=== PATIENT | male | born 1985 | race Caucasian/White ===

== ENCOUNTER 2020-04-07 08:03 | Outpatient (CLI) | payer SELFPAY ==
[2020-04-12 09:55] LABS: SARS-CoV-2 RNA Undetected (Undetected); SARS-CoV-2 Specimen Source Nasopharynx
== END 2020-04-07 08:23 ==
PROVIDERS: Visit Provider Family Medicine
DX: Z11.59 Encounter for screening for other viral diseases (principal)
CPT/HCPCS: U0003

== ENCOUNTER 2020-05-29 13:46 | Outpatient (CLI) | payer SELFPAY ==
[2020-06-01 17:16] LABS: Patient Race White; SARS-CoV-2 RNA Undetected (Undetected); SARS-CoV-2 Specimen Source Nasopharynx
== END 2020-05-29 14:06 ==
PROVIDERS: Visit Provider Family Medicine
DX: Z11.59 Encounter for screening for other viral diseases (principal)
CPT/HCPCS: U0003

== ENCOUNTER 2020-07-28 07:33 | Outpatient (CLI) | payer SELFPAY ==
[2020-08-01 16:09] LABS: Patient Race White; SARS-CoV-2 RNA Undetected (Undetected); SARS-CoV-2 Specimen Source Nasal
== END 2020-07-28 07:53 ==
PROVIDERS: Visit Provider Family Medicine
DX: Z11.59 Encounter for screening for other viral diseases (principal)
CPT/HCPCS: U0003

== ENCOUNTER 2021-01-07 19:09 | Outpatient (CLI) | payer SELFPAY ==
[2021-01-11 10:48] LABS: Varicella IgG Antibody Positive (See Note)
== END 2021-01-07 19:10 | disposition home or self-care (01) ==
LOC: LBO 19:10
PROVIDERS: PCP Family Medicine; Visit Provider Family Medicine
DX: Z00.00 Encounter for general adult medical examination without abnormal findings (principal); Z11.59 Encounter for screening for other viral diseases
CPT/HCPCS: 36415; 86787

== ENCOUNTER 2021-06-15 12:18 | Inpatient (IN) | payer SELFPAY ==
[2021-06-15 12:30] VITALS: BP 144/98; PULSE 84; RESP 16; TEMP 36.4; O2SAT 97
--- NOTE | 2021-06-15 13:30 | DI.CT_ITS ---
Exam(s) CT PELVIC W EXAM: CT PELVIC W CLINICAL HISTORY: Perineal amal-grkrhfcvaggwho-V/O abscess vs hernia TECHNIQUE: Imaging Protocol: Axial computed tomography images with coronal and sagittal reformatted images were created and reviewed CONTRAST MATERIAL: Intravenous: Omnipaque 350 Contrast volume:100 mL Oral: No COMPARISON: No exams were available for comparison FINDINGS: PELVIS: Abdominal Aorta: Abdominal portion non-dilated. Bowel: No obstruction or bowel wall thickening. Appendix is unremarkable. Peritoneal Cavity: No ascites, collection or mesenteric inflammatory response. Soft Tissues: There is a 4.9 x 1.5 x 3.3 cm fluid collection with an enhancing wall in the perianal s oft tissues consistent with an abscess. It lies just anterior and inferior to the anus. Bladder: Symmetric distention, no gross wall thickening. Reproductive Organs: Unremarkable as visualized. Lymph Nodes: Mildly enlarged inguinal lymph nodes. These are likely reactive. Bones: Within normal limits. IMPRESSION: 1. 4.9 x 1.5 x 3.3 cm fluid collection with an enhancing wall consistent with an abscess. It lies ju st anterior and inferior to the anus. 2. Results of this exam have been verbally communicated with provider. RADIATION DOSE DELIVERED: 731.08mGy.cm Total DLP 731.08mGy.cm Total DLP DATA REPOSITORY: All CT scans at this facility are submitted to the National Radiology Data Registry (NRDR) Dose Index Registry (DIR) with the [employer] ([employer]). RADIATION OPTIMIZATION: All CT scans at this facility use at least one of these dose optimization te chniques: automated exposure control; mA and/or kV adjustment per patient size (includes targeted exa ms where dose is matched to clinical indication); or iterative reconstruction.
--- NOTE | 2021-06-15 13:42 | ED.GENADUL_ITS ---
Discharge Plan Disposition Patient Disposition: [facility] INPATIENT Condition: Stable Discharge Details Clinical Impression: Abscess of perineum Admit Date/Time: 06/15/21 18:03 Admit Provider: Cecelia Umana Attending Provider: Cecelia Umana Primary Care Provider: Misael Romero ED Provider: Barbara Luna Discharge Data Discharge Date/Time-TO BE ENTERED AT DEPARTURE: 06/15/21 17:58 Medical Decision Making <Adri Portillo - Last Filed: 06/16/21 10:42> 35-year-old male presents to the ER chief complaint of perineal tenderness and swelling which he noticed over the last 24 hours after lifting 900 pound piece of [place]. He reports that it the pain is getting worse. Does have history of hemorrhoids. Did have an episode of loose stools after eating [place]. Denies any mucus or blood in stools. Denies any problems urinating or burning with urination no hesitancy. Denies any abdominal pain no fever chills. Denies any concern for STDs. Did not take any Tylenol ibuprofen prior to arrival. Basic labs ordered CBC CMP urinalysis. CT pelvis with contrast. Differential diagnosis includes but not limited to perirectal abscess, hernia, enlarged prostate, UTI. CBC shows mild leukocytosis and white blood cell count of 11.53, absolute neutrophil 7.54 CMP largely within normal limits. Urinalysis is pending at this time. CLINICAL HISTORY: Perineal uafe-itjhoquxtwbvlo-W/O abscess vs hernia TECHNIQUE: Imaging Protocol: Axial computed tomography images with coronal and sagittal reformatted images were created and reviewed CONTRAST MATERIAL: Intravenous: Omnipaque 350 Contrast volume:100 mL Oral: No COMPARISON: No exams were available for comparison FINDINGS: PELVIS: Abdominal Aorta: Abdominal portion non-dilated. Bowel: No obstruction or bowel wall thickening. Appendix is unremarkable. Peritoneal Cavity: No ascites, collection or mesenteric inflammatory response. Soft Tissues: There is a 4.9 x 1.5 x 3.3 cm fluid collection with an enhancing wall in the perianal soft tissues consistent with an abscess. It lies just anterior and inferior to the anus. Bladder: Symmetric distention, no gross wall thickening. Reproductive Organs: Unremarkable as visualized. Lymph Nodes: Mildly enlarged inguinal lymph nodes. These are likely reactive. Bones: Within normal limits. IMPRESSION: 1. 4.9 x 1.5 x 3.3 cm fluid collection with an enhancing wall consistent with an abscess. It lies just anterior and inferior to the anus. 2. Results of this exam have been verbally communicated with provider. CT results relayed to patient. Will give antibiotics here in the department and consult with general surgeon. 1635: Spoke with Dr. Umana with general surgery on-call discussed patient case and details. She does agree to accept patient to the OR for I&D and most likely admission. I did discuss CT results and plan of care with patient who verbalizes understanding. She reports that it will take her approximately 1 hour to come in department. She will contact anesthesia. 1721: Dr. Umana requests Levaquin IV order placed. <ZAYRA Rao - Last Filed: 06/15/21 23:57> Patient was received signout from Adri Portillo, nurse practitioner, I did not personally evaluate this patient as he was taken to the operating room prior to my assessment and reported stable condition HPI <Adri Portillo - Last Filed: 06/16/21 10:42> General Mode of arrival: ambulatory . Date/Time Provider Initiated Documentation: 06/15/21 12:27 . Limitations to Documentation: no limitations . Information obtained by: patient and RN notes reviewed . HPI Narrative: 35-year-old male presents to the ER chief complaint of perineal tenderness and swelling which he noticed over the last 24 hours after lifting 900 pound piece of [place]. He reports that it the pain is getting worse. Does have history of hemorrhoids. Did have an episode of loose stools after eating [place]. Denies any mucus or blood in stools. Denies any problems urinating or burning with urination no hesitancy. Denies any abdominal pain no fever chills. Denies any concern for STDs. Did not take any Tylenol ibuprofen prior to arrival. Related Data Home Medications Medication Instructions Recorded Confirmed Unknown [No Known Home Meds] 06/15/21 06/15/21 Allergies Allergy/AdvReac Type Severity Reaction Status Date / Time erythromycin lactobionate Allergy Mild Skin Rash Unverified 06/15/21 12:34 [From Erythrocin] cephalexin monohydrate AdvReac Intermediate itchy Unverified 06/15/21 12:34 [From Keflex] rash/hives sulfamethoxazole AdvReac Intermediate itchy Unverified 06/15/21 12:34 [From Bactrim] rash/hives trimethoprim [From Bactrim] AdvReac Intermediate itchy Unverified 06/15/21 12:34 rash/hives seizure medication AdvReac Unknown Uncoded 06/15/21 12:34 General Stated Complaint: GenMedical EMMIE: 3 <ZAYRA Rao - Last Filed: 06/15/21 23:57> General Mode of arrival: ambulatory . Limitations to Documentation: no limitations . Information obtained by: patient . Review of Systems <Adri Portillo - Last Filed: 06/16/21 10:42> All systems reviewed & are unremarkable except as noted in HPI and below Genitourinary Genitourinary: Reports as per HPI, Denies hematuria, Denies oliguria, Denies difficulty urinating, Reports genital pain, Denies dysuria, Denies testicular pain and Reports other (Swelling noted in the perineum anteriorly to the rectum.) PFSH <Adri Portillo - Last Filed: 06/16/21 10:42> Social History Smoking/Tobacco Use Status: Never Smoking risk assessment performed?: Yes Alcohol Intake: current Alcohol Intake frequency: holidays/special occasions only Drug use: Never Substance use type: does not use Exam <Adri Portillo - Last Filed: 06/16/21 10:42> Narrative Exam Narrative: Constitutional: Alert and oriented x3. Appears stated age. Normal body habitus. Head: Normocephalic, no trauma. Eyes: Pupils PERRLA, Red reflex noted, EOM's intact. Eyelids symmetrical without lesions, discharge, or swelling. ENT: Bilateral TM's WNL, External ear normal to inspection, no mastoid TTP, swelling, or erythema, Nasal turbinates WNL, no nasal discharge. Normal dentition, Posterior pharynx WNL, no exudate. Chest: RRR, Normal S1, S2, distal pulses intact. Resp: Lungs clear to auscultation bilaterally, no wheezes, rales, or rhonchi. Abdomen: Soft nondistended nontender to palpation all 4 quadrants. Genitourinary: Erythema noted in the perirectally and to the scrotum. Tenderness with palpation to the perineum. Rectal exam performed prostate not felt, no external hemorrhoids visualized no internal hemorrhoids palpated. Musculoskeletal: Normal gait, 5/5 strength to all four extremities. Skin: No suspicious rashes or lesions. Capillary refill less than 2 sec. Neurologic: Cranial nerves II-XII intact. Alert and oriented x 3. DTR's intact. Hematologic/Lymphatic: No ecchymosis, no lymphadenopathy. Course <Adri Portillo - Last Filed: 06/16/21 10:42> Vital Signs Vital signs: Vital Signs Temperature 36.4 C L 06/15/21 12:30 Pulse 84 06/15/21 12:30 Respiratory Rate 16 06/15/21 12:30 Blood Pressure 144/98 H 06/15/21 12:30 Pulse Oximetry 97 06/15/21 12:30 Temperature 36.4 C L 06/15/21 12:30 Temperature Source Skin 06/15/21 12:30 Pulse 84 06/15/21 12:30 Respiratory Rate 16 06/15/21 12:30 Respiratory Effort Non-Labored 06/15/21 13:12 Respiratory Depth Normal 06/15/21 13:12 Respiratory Pattern Normal 06/15/21 13:12 Blood Pressure 144/98 H 06/15/21 12:30 Blood Pressure Position Sitting 06/15/21 12:30 Pulse Oximetry 97 06/15/21 12:30 Oxygen Delivery Method Room Air 06/15/21 12:30 Oxygen Flow Rate 0 06/15/21 12:30 Pain Level 5 06/15/21 12:30 Sign Out <Adri Portillo - Last Filed: 06/16/21 10:42> Sign Out Data: Sign Out Comment: Pending Surgery Evaluation and to OR for Perineal abscess. Probable admission post procedure. Dr. Umana on her way. Last updated by Adri Portillo at 06/15/21 17:11
[2021-06-15 14:11] LABS: Abs Immature Grans 0.13 10^3/uL (0.0-0.06); Absolute Basophil Count 0.06 10^3/uL (0.0-0.2); Absolute Eosinophil Count 0.16 10^3/uL (0.0-0.7); Absolute Lymphocyte Count 2.47 10^3/uL (1.2-3.4); Absolute Monocyte Count 1.18 10^3/uL (0.1-0.8); Basophils % 0.5; Eosinophils % 1.4; HCT 45.7 % (40.0-50.0); HGB 15.5 g/dL (13.5-17.5); Immature Grans % 1.1; Lymphocytes % 21.4; MCH 30.7 pg (27.0-33.0); MCHC 33.9 % (32.0-36.0); MCV 90.5 fL (80-95); MPV 10.1 fL (8.0-11.0); Monocytes % 10.2; Neutrophils % 65.4; Nucleated RBC 0 %; Platelet Count 271 10^3/uL (130-400); RBC 5.05 10^6/uL (4.36-5.78); RDW 12.7 % (11.8-14.1); WBC 11.53 10^3/uL (4.4-10.8)
[2021-06-15 14:12] LABS: Absolute Neutrophil Count 7.54 10^3/uL (1.2-6.7)
[2021-06-15] MEDS: Normal Saline 500 ML 999 ML IV (14:14)
[2021-06-15 14:24] LABS: ALT 44 U/L (16-63); AST 14 U/L (15-37); Albumin 3.9 g/dL (3.4-5.0); Alkaline Phosphatase 95 U/L (46-116); Anion Gap 6.1 mmol/L (3-11); BUN 15 mg/dL (7-18); Bilirubin, Total 0.7 mg/dL (0.2-1.0); CO2 27.9 mmol/L (21.0-32.0); CREATININE 1.3 mg/dL (0.70-1.30); Calcium 9.3 mg/dL (8.5-10.1); Chloride 105 mmol/L (98-107); Glucose 94 mg/dL (74-106); Potassium 4.1 mmol/L (3.5-5.1); Sodium 139 mmol/L (136-145); Total Protein 7.5 g/dL (6.4-8.2)
[2021-06-15 15:40] VITALS: BP 122/74; PULSE 77; RESP 18; TEMP 36.7; O2SAT 97
[2021-06-15 16:28] LABS: Bilirubin Negative (Negative); Blood Negative (Negative); Clarity Clear (Clear); Glucose Negative (Negative); Ketones Negative (Negative); Leukocyte Esterase Negative (Negative); Nitrite Negative (Negative); Urobilinogen 0.2 EU/dL (Up TO 0.2); pH 5.5 (5-8)
[2021-06-15] MEDS: Normal Saline 1,000 ML 150 ML IV ×2 (16:56→20:38)
[2021-06-15 16:57] LABS: Source Nasal/Nares
--- NOTE | 2021-06-15 17:27 | W.ANESPRE ---
General Info Date of Service Date Performed: 06/15/21 Height: 5 ft 11 in Weight: 113.398 kg Body Mass Index (BMI): 34.8 Surgical Procedure: Operation Date: 06/15/21 18:00 Proposed Procedures Side Surgeon jenelle Umana, DO Meds Allergies and Home Medications Allergies Allergy/AdvReac Type Severity Reaction Status Date / Time erythromycin lactobionate Allergy Mild Skin Rash Unverified 06/15/21 12:34 [From Erythrocin] cephalexin monohydrate AdvReac Intermediate itchy Unverified 06/15/21 12:34 [From Keflex] rash/hives sulfamethoxazole AdvReac Intermediate itchy Unverified 06/15/21 12:34 [From Bactrim] rash/hives trimethoprim [From Bactrim] AdvReac Intermediate itchy Unverified 06/15/21 12:34 rash/hives seizure medication AdvReac Unknown Uncoded 06/15/21 12:34 Home Medication Medication Instructions Recorded Unknown [No Known Home Meds] 06/15/21 Current Visit Medications: Current Medications Generic Name Dose Route Start Last Admin Trade Name Freq PRN Reason Stop Dose Admin Sodium Chloride 500 mls @ 0 mls/hr 06/15/21 13:30 Saline 500ml Bag IV PRN PRN As Directed Sodium Chloride 1,000 mls @ 150 mls/hr 06/15/21 16:45 06/15/21 16:56 Saline 1000ml Bag IV 150 mls/hr INFUSION CARY Administration IV Miscellaneous Supplies 1 each 06/15/21 13:30 Iv Access IV DIRECTED CARY Sodium Chloride 0 ml 06/15/21 13:30 Normal Saline Flush 10 Ml Syr IVP PRN PRN PFSH Active Problems Active Problems: Problem Status Onset Code Abscess of perineum L02.215 Tobacco Smoking/Tobacco Use Status: Never Alcohol Alcohol Intake: current Alcohol intake frequency: holidays/special occasions only Substance Use Substance use: Never Substance use type: does not use Vital Signs and Lab Results Vital Signs Most Recent Vital Signs in EMR: Most Recent Vital Signs Temp Pulse Resp BP Pulse Ox 36.7 C 77 18 122/74 97 06/15/21 15:40 06/15/21 15:40 06/15/21 15:40 06/15/21 15:40 06/15/21 15:40 Lab Results Result Diagrams: 06/15/21 13:55 06/15/21 13:55 Blood Type / Crossmatch: No Data to Display Complete Blood Count: White Blood Count 11.53 10^3/uL (4.4-10.8) H 06/15/21 13:55 06/15/21 Red Blood Count 5.05 10^6/uL (4.36-5.78) 06/15/21 13:55 06/15/21 Hemoglobin 15.5 g/dL (13.5-17.5) 06/15/21 13:55 06/15/21 Hematocrit 45.7 % (40.0-50.0) 06/15/21 13:55 06/15/21 Platelet Count 271 10^3/uL (130-400) 06/15/21 13:55 06/15/21 Complete Metabolic Panel: Sodium Level 139 mmol/L (136-145) 06/15/21 13:55 06/15/21 Potassium Level 4.1 mmol/L (3.5-5.1) 06/15/21 13:55 06/15/21 Chloride Level 105 mmol/L (98-107) 06/15/21 13:55 06/15/21 Carbon Dioxide Level 27.9 mmol/L (21.0-32.0) 06/15/21 13:55 06/15/21 Blood Urea Nitrogen 15 mg/dL (7-18) 06/15/21 13:55 06/15/21 Creatinine 1.3 mg/dL (0.70-1.30) 06/15/21 13:55 06/15/21 Estimated GFR/1.73 m2 >= 60.00 (mL/min/1.73m2) 06/15/21 13:55 06/15/21 Calcium Level 9.3 mg/dL (8.5-10.1) 06/15/21 13:55 06/15/21 Albumin 3.9 g/dL (3.4-5.0) 06/15/21 13:55 06/15/21 Glucose Level 94 mg/dL (74-106) 06/15/21 13:55 06/15/21 Liver Function Panel: Alanine Aminotransferase (ALT/SGPT) 44 U/L (16-63) 06/15/21 13:55 06/15/21 Aspartate Amino Transf (AST/SGOT) 14 U/L (15-37) L 06/15/21 13:55 06/15/21 Coagulation Panel: No Data to Display Cardiac Panel: No Data to Display Arterial Blood Gas: No Data to Display Venous Blood Gas: No Data to Display Pancreas Panel: No Data to Display Thyroid Panel: No Data to Display Infectious Disease: Coronavirus (COVID-19)(PCR) Pending 06/15/21 16:50 06/15/21 Coronavirus 2019 Source Nasal/Nares 06/15/21 16:50 06/15/21 Blood Cultures: No Data to Display Toxicology Panel: No Data to Display Anesthesia Assessment and Plan Anesthesia History Personal History: No History of Anesthesia Complications Family History: No Family History of Anesthesia Complications Exercise Tolerance Exercise Tolerance: Metabolic Equivalents>4 Pertinent Negatives Pertinent Negatives: No Symptoms of GERD, No Major Cardiovascular Symptoms or Complaints, No Major Pulmonary Symptoms or Complaints and No History of CVA/TIA Cardiac & Pulmonary Exam Cardiac Exam: Normal S1/S2 Heart Sounds Pulmonary Exam: Clear Bilateral Breath Sounds Airway Exam Known Difficult Airway: No Mallampati Class: 2 Mouth Opening: Normal (> 3cm) Thyromental Distance: Greater than 3 cm Neck Range of Motion: Full ROM Neck Circumference: Normal Teeth Condition: Normal Dentition and Loose or Chipped (Bottom right molar broken) ASA Classification ASA Score: ASA 2 Emergency Case?: Yes NPO Status NPO Status: NPO Clear Liquids>2 hours (Solids > 7 hours, no gastroparesis) Anesthesia Plan Resuscitation Status: Full Code Anesthesia Technique: Spinal Anesthesia Airway Planned: Natural Airway Monitors Used: Standard Monitors
[2021-06-15] MEDS: levoFLOXacin 750 MG/150 ML BAG 100 MG IVPB (17:43)
[2021-06-15 17:54] LABS: COVID-19 PCR Negative (Negative)
[2021-06-15 18:04] VITALS: BP 122/74; PULSE 77; RESP 18; TEMP 36.7; O2SAT 97
[2021-06-15 18:12] VITALS: BMI 34.8
--- NOTE | 2021-06-15 18:12 | W.PM.HP.N ---
Date of service: 06/15/21 Time of Service: 18:13 Assessment and Plan Assessment and plan (1) Abscess of perineum: Status: Acute Assessment and plan: will need drainage and abx. will need to heal by secondary intent. will admit for pain control and training in dressing/wound care OR for drianage. Informed consent is obtained for the procedural (explained in simple layman's terms that the pt and/or family could understand) explaining risks vs benefits and alternatives to the procedure and consequences if we do not do the procedure. Risks include but are not limited to:bleeding,infections, pneumonia, blood clots/DVT/PE, anesthesia(aspiration, damage to teeth/airway/LA/CVA//prolonged mechanical ventilation/PTX/IV infections). Wound infections requirng further surgery. Loss of function of limb/ext. (motor or sensory) . Scarring and disfigurement. chronic pain/numbness/recurrence/need to heal by secondary intent. packing & dreesing changes History of Present Illness Narrative: pt is 35 y/o male presetns w/ pain CT: CYNDY: Abdominal Aorta: Abdominal portion non-dilated. Bowel: No obstruction or bowel wall thickening. Appendix is unremarkable. Peritoneal Cavity: No ascites, collection or mesenteric inflammatory response. Soft Tissues: There is a 4.9 x 1.5 x 3.3 cm fluid collection with an enhancing wall in the perianal soft tissues consistent with an abscess. It lies just anterior and inferior to the anus. Bladder: Symmetric distention, no gross wall thickening. Reproductive Organs: Unremarkable as visualized. Lymph Nodes: Mildly enlarged inguinal lymph nodes. These are likely reactive. Bones: Within normal limits. IMPRESSION: 1. 4.9 x 1.5 x 3.3 cm fluid collection with an enhancing wall consistent with an abscess. It lies just anterior and inferior to the anus. 2. Results of this exam have been verbally communicated with provider. pt has a hx of prior ST abscess. he has mult abx allergies- rash only no MRSA that he is aware of. 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 No fever/chills. no DM. no steriod use, only sx was wisdome teeth. Review of Systems All systems reviewed & are unremarkable except as noted in HPI and below PFSH Social History (Reviewed 09/28/21 @ 18:26 by SUMAN Clark Smoking/Tobacco Use Status: Never Smoking risk assessment performed?: Yes Alcohol Intake: current Alcohol Intake frequency: holidays/special occasions only Drug use: Never Substance use type: does not use Meds Allergies and Home Medications Allergies Allergy/AdvReac Type Severity Reaction Status Date / Time erythromycin lactobionate Allergy Mild Skin Rash Unverified 06/15/21 12:34 [From Erythrocin] cephalexin monohydrate AdvReac Intermediate itchy Unverified 06/15/21 12:34 [From Keflex] rash/hives sulfamethoxazole AdvReac Intermediate itchy Unverified 06/15/21 12:34 [From Bactrim] rash/hives trimethoprim [From Bactrim] AdvReac Intermediate itchy Unverified 06/15/21 12:34 rash/hives seizure medication AdvReac Unknown Uncoded 06/15/21 12:34 Home Medications Medication Instructions Recorded Confirmed Type Unknown [No Known Home Meds] 06/15/21 06/15/21 History Exam Const General: cooperative, healthy appearing, comfortable, no acute distress, well developed and well groomed Nutritional Appearance: average body habitus and well nourished Orientation: alert, awake and oriented x3 HENMT Head: normal to inspection, normocephalic and atraumatic Ears: hearing grossly normal bilaterally and external ears normal General nose exam: external nose normal Face and sinus: normal facial exam and sinuses nontender Mouth: oral mucosae normal, lip normal, tongue normal and moist mucous membranes Teeth and gingiva: dentition normal Eyes General: appearance normal, both eyes and all related structures Conjunctivae: conjunctivae normal Sclera: sclerae normal Pupils: PERRL Neck Neck: normal visual inspection and full ROM Chest Chest: normal inspection of the chest Resp Effort & Inspection: normal respiratory effort, able to speak in complete sentences, no cough, no nasal flaring, not tachypneic and no use of accessory muscles Auscultation: clear to auscultation bilaterally, no rales, no rhonchi and no wheezes Cardio Jugular venous pressure: no JVD Rate: regular rate Rhythm: regular rhythm GI Inspection: normal to inspection, no edema and non-distended Palpation: soft, no masses, nontender and No ascites Auscultation: normal bowel sounds Other: absces on perienum red inflammed edema. all mild does not go into scrotum. pt is not DM not smoker. Skin Other: mult inflammed but not infected hair follicles on buttocks. abscess as noted. Neuro General: patient alert, patient oriented x3, oriented, gait normal, moves all extremities, no focal motor deficits and CN's II-XI intact bilaterally Cognition: normal cognition Speech: speech normal Gait: normal gait Motor: muscle tone normal throughout Extrem General: normal to inspection, full ROM and no clubbing, cyanosis or edema Psych Appearance: grossly normal and well kempt Mental Status: mental status grossly normal Speech and Movement: speech and movement normal Affect: normal affect Results Labs Result diagrams: 06/15/21 13:55 06/15/21 13:55 Labs: Laboratory Results - last 24 hr 06/15/21 06/15/21 06/15/21 13:55 13:55 16:05 WBC 11.53 H RBC 5.05 Hgb 15.5 Hct 45.7 MCV 90.5 MCH 30.7 MCHC 33.9 RDW 12.7 Plt Count 271 MPV 10.1 Immature Gran % 1.1 Neutrophils % 65.4 Lymphocytes % 21.4 Monocytes % 10.2 Eosinophils % 1.4 Basophils % 0.5 Nucleated RBC % 0 Absolute Neutrophils 7.54 H Absolute Lymphocytes 2.47 Absolute Monocytes 1.18 H Absolute Eosinophils 0.16 Absolute Basophils 0.06 Sodium 139 Potassium 4.1 Chloride 105 Carbon Dioxide 27.9 Anion Gap 6.1 BUN 15 Creatinine 1.3 Estimated GFR/1.73 m2 >= 60.00 Glucose 94 Calcium 9.3 Total Bilirubin 0.7 AST 14 L ALT 44 Alkaline Phosphatase 95 Total Protein 7.5 Albumin 3.9 Urine Color Yellow Urine Clarity Clear Urine pH 5.5 Ur Specific [place] 1.020 Urine Protein Negative Urine Ketones Negative Urine Blood Negative Urine Nitrite Negative Urine Bilirubin Negative Urine Urobilinogen 0.2 Ur Leukocyte Esterase Negative Urine Glucose Negative COVID-19 Source SARS-CoV-2 (PCR) 06/15/21 16:50 WBC RBC Hgb Hct MCV MCH MCHC RDW Plt Count MPV Immature Gran % Neutrophils % Lymphocytes % Monocytes % Eosinophils % Basophils % Nucleated RBC % Absolute Neutrophils Absolute Lymphocytes Absolute Monocytes Absolute Eosinophils Absolute Basophils Sodium Potassium Chloride Carbon Dioxide Anion Gap BUN Creatinine Estimated GFR/1.73 m2 Glucose Calcium Total Bilirubin AST ALT Alkaline Phosphatase Total Protein Albumin Urine Color Urine Clarity Urine pH Ur Specific [place] Urine Protein Urine Ketones Urine Blood Urine Nitrite Urine Bilirubin Urine Urobilinogen Ur Leukocyte Esterase Urine Glucose COVID-19 Source Nasal/Nares SARS-CoV-2 (PCR) Negative Last Vital Signs Temp 36.7 C 06/15/21 18:04 Pulse 77 06/15/21 18:04 Resp 18 06/15/21 18:04 BP 122/74 06/15/21 18:04 Pulse Ox 97 06/15/21 18:04
[2021-06-15] MEDS: Bupivacaine 0.25% Pres-Free 30 ML VIAL (19:00)
[2021-06-15] MEDS: Bupivacaine LIPOSOME/PF 133 MG/10 ML VIAL IJ (19:00)
--- NOTE | 2021-06-15 19:07 | W.PM.OP ---
Date of service: 06/15/21 Time of Service: 19:07 Operative Note Operative Note DATE OF PROCEDURE: 06/15/21 PRE-OP DIAGNOSIS: perineal abscess POST-OP DIAGNOSIS: same PROCEDURE: I & D SURGEON: Cecelia Umana ANESTHESIA TYPE: Local By Surgeon and Other (saddle block ) Refer to Anesthesia Record ESTIMATED BLOOD LOSS: 5 PATHOLOGY: none sent COMPLICATIONS: None Patient was transported to: floor Procedure Description: Patient is a 35-year-old male who came to emergency room complaining of perineal pain. He had a CT scan done which shows a 5 cm midline perineal abscess he denies being diabetic. He denies being a smoker. He has never had significant soft tissue infections or MRSA in the past. Informed consent is obtained explaining risks and benefits of the procedure including including but not limited to: Bleeding, infection, pneumonia, blood clots. Chronic pain or chronic numbness, scarring, need to heal by secondary intent, and complications of anesthesia. Anesthesia is administered per the department of anesthesia. Patient is then placed into stirrups and prepped and draped in the usual sterile fashion using a Betadine scrub solution. Timeout was performed. 20 cc of quarter percent bupivacaine is used for local anesthetization. The area of the abscess is localized. 2 inch incision is made over this. Approximately 30 cc of purulent drainage is evacuated. Cultures are taken. A curette is used to remove all nonviable tissue. The wound is irrigated with a liter of saline. Electrocautery is used to provide hemostasis. The wound is infused with 10 cc of liposomal lidocaine. Measures 6 cm x 3 cm x 2 cm. It is packed plain gauze. Sterile dressing is applied. Patient tolerated procedure well without complication and transferred to recovery room in stable condition. He will be admitted overnight for IV antibiotics and pain control. He will need to do daily dressing changes for about a week
[2021-06-15 20:16] VITALS: BP 133/81; PULSE 69; RESP 16; TEMP 36.2; O2SAT 99
--- NOTE | 2021-06-15 20:30 | W.ANESPOSTOP ---
Postoperative Evaluation Date, Time and Location Date Performed: 06/15/21 Time Performed: 19:28 Patient Location: Med/Surg Vital Signs Most Recent Imported Vital Signs: Most Recent Vital Signs Temp Pulse Resp BP Pulse Ox 36.7 C 77 18 122/74 97 06/15/21 18:04 06/15/21 18:04 06/15/21 18:04 06/15/21 18:04 06/15/21 18:04 Pain Score Most Recent Pain Score: Most Recent Pain Score Pain Level 4 06/15/21 15:40 Assessment Mental Status: Awake (Alert & Oriented to Patient Baseline) Airway and Respiratory Function: Patent airway with normal (patient baseline) respiratory exam Cardiovascular Function: Hemodynamically Stable Hydration Status: Adequately Hydrated Nausea & Vomiting: No Nausea or Vomiting Pain: Pt. Denies Any Pain Peripheral Nerve Block: Patient did not receive a nerve block
[2021-06-15] MEDS: Acetaminophen 500 MG TAB 1000 MG PO (20:38)
[2021-06-15] MEDS: Normal Saline Flush 10 ML SYR IVP (20:38)
[2021-06-15 21:10] LABS: C-Reactive Protein 3.18 mg/dL (0.0-0.3)
[2021-06-15 21:16] LABS: Hemoglobin A1C 5.4 % (<5.7)
--- NOTE | 2021-06-15 22:47 | PDOC.HHF2F ---
Home Health Certification Home Health Certification: 1. Encounter Date and Reason I certify that Adriel Prieto was seen by Cecelia Umana on 06/15/21 and that I had a [id number] encounter with this patient that meets the physician face to face encounter requirements. 2. Clinical Findings Supporting Skilled Need and Homebound Status I certify that home health services are medically necessary, include either intermittent correction and/or physical/speech therapy, and that this patient is homebound in that absences from the home require considerable and taxing effort and are infrequent or of short duration, or are attributable to the need to receive medical care. [X] (a) Attached documentation from encounter provides clinical findings supporting skilled need and homebound status (including what assistance patient requires to leave the home). The encounter with the patient was in whole, or in part, for the following medical condition, which is the primary reason for home health care: Shelter: daily dressing changes/wound packing Physical Therapy: Speech Therapy: Homebound:yes 3. Certification and Authentication I certify that I composed the above information based on my clinical judgement relating to this patient's medical condition and, if applicable, clinical findings communicated to me by the NPP or inpatient physician who performed the Home Health Referral. All further orders will be obtained through [facility] (Community Based Physician - PCP)
[2021-06-16] MEDS: Ketorolac 15 MG/ML VIAL IVP ×3 (01:09→13:37)
[2021-06-16] MEDS: Acetaminophen 500 MG TAB 1000 MG PO ×3 (01:09→13:17)
[2021-06-16] MEDS: Normal Saline Flush 10 ML SYR IVP ×2 (01:09→08:10)
[2021-06-16 03:39] VITALS: BP 115/73; PULSE 90; RESP 18; TEMP 37.3; O2SAT 97
--- NOTE | 2021-06-16 07:59 | W.PM.PROGNOT ---
Date of Service Date of service: 06/16/21 Time of Service: 07:59 Assessment and Plan Assessment and plan (1) Abscess of perineum: Status: Acute Assessment and plan: POD #1 s/p perineal abscess drainage performed in the OR. Pain is improving. Currently well controlled. On Levofloxacin, will continue x 7 more days. Will need to be pre-medicated prior to dressing change. Packing will need to be changed today prior to d/c. Will let the wound heal by secondary intention. Discussed using Sitz baths at home for comfort and to keep the area clean. May use as needed x 15-20 mins at a time. D/c home later today Subjective Subjective Interval history since last seen: Patient reports that he is feeling better this morning 410PL. He states that the characteristics of the pain has changed, less pressure, more like an incision type pain. He denies any fevers or chills this morning. Exam Const General: cooperative, healthy appearing and comfortable Orientation: alert and oriented x3 Resp Effort & Inspection: normal respiratory effort, no audible wheezes and no cough Objective Last Vital Signs Temp 37.3 C 06/16/21 03:39 Pulse 90 06/16/21 03:39 Resp 18 06/16/21 03:39 BP 115/73 06/16/21 03:39 Pulse Ox 97 06/16/21 03:39 Laboratory Results - last 24 hr 06/15/21 06/15/21 06/15/21 13:55 13:55 13:55 WBC 11.53 H RBC 5.05 Hgb 15.5 Hct 45.7 MCV 90.5 MCH 30.7 MCHC 33.9 RDW 12.7 Plt Count 271 MPV 10.1 Immature Gran % 1.1 Neutrophils % 65.4 Lymphocytes % 21.4 Monocytes % 10.2 Eosinophils % 1.4 Basophils % 0.5 Nucleated RBC % 0 Absolute Neutrophils 7.54 H Absolute Lymphocytes 2.47 Absolute Monocytes 1.18 H Absolute Eosinophils 0.16 Absolute Basophils 0.06 Sodium 139 Potassium 4.1 Chloride 105 Carbon Dioxide 27.9 Anion Gap 6.1 BUN 15 Creatinine 1.3 Estimated GFR/1.73 m2 >= 60.00 Glucose 94 Hemoglobin A1c 5.4 Calcium 9.3 Total Bilirubin 0.7 AST 14 L ALT 44 Alkaline Phosphatase 95 C-Reactive Protein Total Protein 7.5 Albumin 3.9 Urine Color Urine Clarity Urine pH Ur Specific [place] Urine Protein Urine Ketones Urine Blood Urine Nitrite Urine Bilirubin Urine Urobilinogen Ur Leukocyte Esterase Urine Glucose COVID-19 Source SARS-CoV-2 (PCR) 06/15/21 06/15/21 06/15/21 13:55 16:05 16:50 WBC RBC Hgb Hct MCV MCH MCHC RDW Plt Count MPV Immature Gran % Neutrophils % Lymphocytes % Monocytes % Eosinophils % Basophils % Nucleated RBC % Absolute Neutrophils Absolute Lymphocytes Absolute Monocytes Absolute Eosinophils Absolute Basophils Sodium Potassium Chloride Carbon Dioxide Anion Gap BUN Creatinine Estimated GFR/1.73 m2 Glucose Hemoglobin A1c Calcium Total Bilirubin AST ALT Alkaline Phosphatase C-Reactive Protein 3.18 H Total Protein Albumin Urine Color Yellow Urine Clarity Clear Urine pH 5.5 Ur Specific [place] 1.020 Urine Protein Negative Urine Ketones Negative Urine Blood Negative Urine Nitrite Negative Urine Bilirubin Negative Urine Urobilinogen 0.2 Ur Leukocyte Esterase Negative Urine Glucose Negative COVID-19 Source Nasal/Nares SARS-CoV-2 (PCR) Negative
[2021-06-16] MEDS: Milk of Magnesia 30 ML CUP PO (08:11)
[2021-06-16] MEDS: Sennosides/Docusate Sodium TAB 1 TAB PO (08:11)
[2021-06-16 08:15] VITALS: BP 112/73; PULSE 82; RESP 18; TEMP 36.4; O2SAT 98
--- NOTE | 2021-06-16 09:28 | PDOC.CMIN ---
- If Service Date Differs Date of service: 06/16/21 Time of Service: 09:28 Care Management Initial Assess REASON FOR HOSPITALIZATION:: Abscess of perineum PREVIOUS FUNCTIONAL STATUS/SOCIAL/FAMILY SUPPORTS:: Adriel lives in [place] with significant other. 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 CURRENT FUNCTIONAL STATUS:: Adriel was in the process of being discharged home when CM met with him. He shares he does not have insurance. CM provided him with [facility]'s finacial assistance application and a referral to [employer] to assist him with health care coverage options. ADVANCE DIRECTIVES:: None on file Has patient been provided with info about the portal/API?: Yes Did the patient sign up for the portal?: Yes ( ) CODE STATUS:: Full Code INSURANCE COVERAGE / FINANCIAL ISSUES:: None, CM provided pt with a [facility] application for finacial assistance and a referral to [employer]. CURRENT HOME/COMMUNITY SERVICES/EQUIPMENT:: None at this time PRIMARY CARE PHYSICIAN:: Misael Romero PATIENT/FAMILY EDUCATION NEEDS:: Review discharge instructions and plan to follow up with community providers. ask me three. TRANSPORTATION:: via private vehicle with family PLAN:: Trasportation via private vehicle with family with [facility] RN services for support with dressing changes. CM notified [facility]. Follow up with community providers and discharge plan of care. Meet with [facility] to discuss healthcare coverage options and fill out [facility]'s financial assistance forms.
[2021-06-16] MEDS: oxyCODONE 5 MG TAB PO (10:02)
--- NOTE | 2021-06-16 12:21 | CMDISCH_ITS ---
- If Service Date Differs Date of service: 06/16/21 Time of Service: 12:21 LACE Index Scoring Tool - Questions: Length of Stay (in days): 1 Acuity (Admit via E.D.?): No E.D. Visits: 1 - Answers: Total Score: 2 Risk of Readmission: Low Risk Care Management Discharge Reason for Hospitalization: Abscess of perineum Discharge Plan: Discharge home with [facility] RN services via private vehicle with family. CM notified [facility]. Adriel does not have any health care coverage. CM provided patient with [facility] finacial aid forms and a referral to [employer] to discuss insurance options. Follow up with community providers and discharge plan of care. Patient/Family Education Needs: Review discharge instructions, limitations and plan to follow up with community providers. ask me three.
--- NOTE | 2021-06-16 12:46 | DSE_ITS ---
Documented by User: ZAYRA Khan 06/16/21 13:00 Date of service: 06/16/21 Time of Service: 12:47 DS: Diagnosis Discharge Diagnosis (1) Abscess of perineum: Status: Acute Discharge Plan Disposition Patient Disposition: HOME Condition: Stable Discharge Details Reason For Visit: Perineal Abscess Admit Date/Time: 06/15/21 18:03 Admit Provider: Cecelia Umana Attending Provider: Cecelia Umana Primary Care Provider: Misael Romero Hospital Course Hospital Course: 35 y/o male presented to the ER with complaints of worsening perineal pain. A abscess was noted on CT scan. The patient was taken to the OR for incision and drainage. The wound was packed and the patient was admitted over night to begin antibiotics and for pain control. Pain has been well controlled at this time. Pain increases with positions that cause pressure on the area/I&D site. No fevers or chills over night. Dressing and packing were changed. 1 plain packing was used. Wound was cleansed with sterile saline. Discussed using Sitz baths to keep the area clean and to help manage pain/discomfort within the area. He will need to change the external dressing at minimum BID. He will need to follow up with [facility] on 06/18 for dressing and packing change. He will be d/c on PO Levofloxacin x 7 days. Home Meds and New Rx's Prescriptions: New levofloxacin 500 mg tablet 500 mg PO DAILY 7 Days Qty: 7 RF: 0 oxycodone 5 mg tablet 5 mg PO TID PRN (Reason: Perineal Abscess I&D) Qty: 14 RF: 0 Discharge Instructions Instructions: Abscess Incision and Drainage (DC) Additional Instructions: Activity at Home after surgery: 1. Make sure you walk outside at least 4 times per day 2. You should be able to climb a flight of stairs 3. No driving while in pain or taking pain medications 4. No strenuous activity or heavy lifting for 2 weeks ) Diet, Nutrition, & wound healin. Avoid alcohol until after you are recovered from your surgery 2. Make sure to eat plenty of lean protein (meat, fish, eggs, cottage cheese, beans) 3. Eat a variety of fruits and vegetables. Eat plenty of high fiber foods to avoid constipation. 4. Drink plenty of liquids to stay hydrated and avoid constipation Pain Medications: 1. Tylenol 650mg every 6 hours as needed and Ibuprofen 600 mg every 6 hours as needed. You may alternate between the 2 medications every 3 hours 2. If a narcotic has been prescribed take as directed only for breakthrough pain For Constipation: 1. Take Milk of Magnesia or MiraLax as needed for constipation Other: 1. You may shower daily. Do not scrub the incisions Wound Care: 1. sitz baths q6h and as needed Please call our office if you develop: 1. Fevers >101.5 2. Nausea or Vomiting 3. Worsening pain 4. Redness and thick discharge from the wounds If after hours please call the Hospital at and ask to speak to the on-call surgeon Referrals: Leni Vizcaino MD [ [facility] STAFF PHYSICIAN] - 06/18/21 11:15 am Activity:: Activity as Tolerated Equipment/Supplies:: sitz bath Diet:: Normal Diet DS: Data Vitals/I&O Vitals and I&O: Vital Signs Temperature 36.4 C L 06/16/21 08:15 Temperature Source Temporal Artery Scan 06/16/21 08:15 Pulse 82 06/16/21 08:15 Pulse Rhythm Regular 06/16/21 09:17 Respiratory Rate 18 06/16/21 08:15 Respiratory Effort Non-Labored 06/16/21 09:17 Respiratory Depth Normal 06/16/21 09:17 Respiratory Pattern Normal 06/16/21 09:17 Blood Pressure 112/73 06/16/21 08:15 Blood Pressure Position Sitting 06/15/21 12:30 Pulse Oximetry 98 06/16/21 08:15 Oxygen Delivery Method Room Air 06/16/21 08:15 Oxygen Flow Rate 0 06/16/21 08:15 Pain Level 5 06/16/21 03:39 Intake & Output 06/15/21 06/16/21 06/16/21 18:59 06:59 18:59 Intake Total 670 / 1767.5 1097.5 / 1767.5 480 / 480 Output Total 700 / 700 Balance 670 / 1067.5 397.5 / 1067.5 480 / 480 Weight 113.398 kg 113.398 kg Intake: IV 670 / 1767.5 1097.5 / 1767.5 Oral 480 / 480 Output: Urine 700 / 700 Other: Urine Color Yellow Urine Appearance Clear Urine Odor Normal Comment pT voids independent in toilet. Voiding Methods Toilet Toilet Data Completed and Pending Labs on day of discharge: Labs from last 24 hours 06/15/21 06/15/21 06/15/21 16:50 16:05 13:55 WBC RBC Hgb Hct MCV MCH MCHC RDW Plt Count MPV Immature Gran % Neutrophils % Lymphocytes % Monocytes % Eosinophils % Basophils % Nucleated RBC % Absolute Neutrophils Absolute Lymphocytes Absolute Monocytes Absolute Eosinophils Absolute Basophils Sodium Potassium Chloride Carbon Dioxide Anion Gap BUN Creatinine Estimated GFR/1.73 m2 Glucose Hemoglobin A1c Calcium Total Bilirubin AST ALT Alkaline Phosphatase C-Reactive Protein 3.18 H Total Protein Albumin Urine Color Yellow Urine Clarity Clear Urine pH 5.5 Ur Specific [place] 1.020 Urine Protein Negative Urine Ketones Negative Urine Blood Negative Urine Nitrite Negative Urine Bilirubin Negative Urine Urobilinogen 0.2 Ur Leukocyte Esterase Negative Urine Glucose Negative COVID-19 Source Nasal/Nares SARS-CoV-2 (PCR) Negative 06/15/21 06/15/21 06/15/21 13:55 13:55 13:55 WBC 11.53 H RBC 5.05 Hgb 15.5 Hct 45.7 MCV 90.5 MCH 30.7 MCHC 33.9 RDW 12.7 Plt Count 271 MPV 10.1 Immature Gran % 1.1 Neutrophils % 65.4 Lymphocytes % 21.4 Monocytes % 10.2 Eosinophils % 1.4 Basophils % 0.5 Nucleated RBC % 0 Absolute Neutrophils 7.54 H Absolute Lymphocytes 2.47 Absolute Monocytes 1.18 H Absolute Eosinophils 0.16 Absolute Basophils 0.06 Sodium 139 Potassium 4.1 Chloride 105 Carbon Dioxide 27.9 Anion Gap 6.1 BUN 15 Creatinine 1.3 Estimated GFR/1.73 m2 >= 60.00 Glucose 94 Hemoglobin A1c 5.4 Calcium 9.3 Total Bilirubin 0.7 AST 14 L ALT 44 Alkaline Phosphatase 95 C-Reactive Protein Total Protein 7.5 Albumin 3.9 Urine Color Urine Clarity Urine pH Ur Specific [place] Urine Protein Urine Ketones Urine Blood Urine Nitrite Urine Bilirubin Urine Urobilinogen Ur Leukocyte Esterase Urine Glucose COVID-19 Source SARS-CoV-2 (PCR) 06/15/21 18:45 Perirectal Wound Culture - Pending 06/15/21 18:45 Perineal Anaerobic Culture - Pending Preliminary micro results at discharge 06/15/21 18:45 Wound Culture - Pending Perirectal 06/15/21 18:45 Anaerobic Culture - Pending Perineal [facility] Surgical History (Updated 06/16/21 @ 13:07 by Leni Vizcaino MD) History of incision and drainage (~06/15/21) Social History Smoking/Tobacco Use Status: Never Smoking risk assessment performed?: Yes Alcohol Intake: current Alcohol Intake frequency: holidays/special occasions only Drug use: Never Substance use type: does not use Documented by User: Leni Vizcaino MD 06/16/21 13:13 Discharge Plan Disposition Patient Disposition: HOME Condition: Stable Discharge Details Reason For Visit: Perineal Abscess Admit Date/Time: 06/15/21 18:03 Admit Provider: Cecelia Umana Attending Provider: Cecelia Umana Primary Care Provider: Misael Romero gertrudis [facility] Hospital Course Hospital Course: 35 y/o male presented to the ER with complaints of worsening perineal pain. A abscess was noted on CT scan. The patient was taken to the OR for incision and drainage. The wound was packed and the patient was admitted over night to begin antibiotics and for pain control. Pain has been well controlled at this time. Pain increases with positions that cause pressure on the area/I&D site. No fevers or chills over night. Dressing and packing were changed. 1 plain packing was used. Wound was cleansed with sterile saline. Discussed using Sitz baths to keep the area clean and to help manage pain/discomfort within the area. He will need to change the external dressing at minimum BID. He will need to follow up with Surgical Office on 06/18 for dressing and packing change. He will be d/c on PO Levofloxacin x 7 days. Home Meds and New Rx's Prescriptions: New levofloxacin 500 mg tablet 500 mg PO DAILY 7 Days Qty: 7 RF: 0 oxycodone 5 mg tablet 5 mg PO TID PRN (Reason: Perineal Abscess I&D) Qty: 14 RF: 0 Discharge Instructions Instructions: Abscess Incision and Drainage (DC) Additional Instructions: Activity at Home after surgery: 1. Make sure you walk outside at least 4 times per day 2. You should be able to climb a flight of stairs 3. No driving while in pain or taking pain medications 4. No strenuous activity or heavy lifting for 2 weeks ) Diet, Nutrition, & wound healin. Avoid alcohol until after you are recovered from your surgery 2. Make sure to eat plenty of lean protein (meat, fish, eggs, cottage cheese, beans) 3. Eat a variety of fruits and vegetables. Eat plenty of high fiber foods to avoid constipation. 4. Drink plenty of liquids to stay hydrated and avoid constipation Pain Medications: 1. Tylenol 650mg every 6 hours as needed and Ibuprofen 600 mg every 6 hours as needed. You may alternate between the 2 medications every 3 hours 2. If a narcotic has been prescribed take as directed only for breakthrough pain For Constipation: 1. Take Milk of Magnesia or MiraLax as needed for constipation Other: 1. You may shower daily. Do not scrub the incisions Wound Care: 1. sitz baths q6h and as needed Please call our office if you develop: 1. Fevers >101.5 2. Nausea or Vomiting 3. Worsening pain 4. Redness and thick discharge from the wounds If after hours please call the Hospital at and ask to speak to the on-call surgeon Referrals: Leni Vizcaino MD [ [facility] STAFF PHYSICIAN] - 06/18/21 11:15 am Activity:: Activity as Tolerated Equipment/Supplies:: sitz bath Diet:: Normal Diet DS: Summary Time Spent with Patient providing and/or coordinating discharge services: Less than 30 minutes Status at Discharge Functional status at discharge: independent ambulation Overall status at discharge: patient is back to baseline Mental Status: mental status grossly normal Speech and Movement: speech and movement normal Mood: congruent mood Affect: normal affect Exam Resp Effort & Inspection: normal respiratory effort GI Other: wound is c/d/i Psych Mental Status: mental status grossly normal Speech and Movement: speech and movement normal Mood: congruent mood Affect: normal affect [facility] Surgical History (Updated 06/16/21 @ 13:07 by Leni Vizcaino MD) History of incision and drainage (~06/15/21) Social History Smoking/Tobacco Use Status: Never Smoking risk assessment performed?: Yes Alcohol Intake: current Alcohol Intake frequency: holidays/special occasions only Drug use: Never Substance use type: does not use
== END 2021-06-16 13:58 | disposition home or self-care (01) | DRG 603 ==
LOC: ER 17:38 → MS 20:56 → PDS 06-16 11:48
PROVIDERS: Registered Nurse Emergency; Admitting Provider Surgery; Emergency Provider Physician Assistant; PCP Family Medicine; Visit Provider Surgery
PROC: 0H9AXZZ Drainage of Inguinal Skin, External Approach (ICD-10-PCS; CPT 10060; principal; 2021-06-15 18:00)
DX: L02.215 Cutaneous abscess of perineum (principal); Z20.822 Contact with and (suspected) exposure to COVID-19
CPT/HCPCS: 10060; 80053; 87077; 87635; 90686; 96361; 96374; 99285; 72193; 81003; 83036; 85025; 86140; 87070; 87075; 87186; 87205; 99284; J1885; J1956; J2250; J2405

== ENCOUNTER 2022-07-11 11:45 | Emergency (ER) | payer BC, SELFPAY ==
[2022-07-11 12:05] VITALS: BP 143/91; PULSE 72; RESP 18; TEMP 36.8; O2SAT 97
--- NOTE | 2022-07-11 13:34 | W.ED.GENAD ---
Discharge Plan Disposition Patient Disposition: HOME Condition: Stable Discharge Details Clinical Impression: Abscess of perineum Primary Care Provider: Misael Romero ED Provider: Claudia Harper Home Meds and New Rx's Prescriptions: No Action No Known Home Meds Discharge Instructions Instructions: Abscess (ED) Additional Instructions: You have recurrence of your perirectal abscess. As was discussed by surgeon, Dr. Crawford, this is not amenable to drainage at this time. Please take the ciprofloxacin and Flagyl as prescribed. Dr. Crawford is planning to see you on Monday, he advised that he will call you tomorrow to give you the details of this appointment time. In the interim, if you develop fever/chills, increased pain, difficulty with bowel or bladder habits or other new/worsening symptoms to seek care urgently once again. Please use warm soaks to help with discomfort and swelling. You may continue with Tylenol and ibuprofen as needed for discomfort. Referrals: Misael Romero MD [Primary Care Provider] - Discharge Data Discharge Date/Time-TO BE ENTERED AT DEPARTURE: 07/11/22 17:31 Medical Decision Making <ZAYRA Ferrer - Last Filed: 07/20/22 13:58> Patient is a pleasant 36-year-old male presenting today with chief complaint of perineal pain. He reports this began this morning. Patient has past medical history pertinent for an abscess in this area. There was question of possible perirectal abscess associated with possible fistula. Patient has not undergone the recommended colonoscopy as of yet. He reports that pain has progressively been increasing such that now he is havig difficulty sitting. When he had this last, had to have surgical debridement. He denies fevers/chills, states otherwise feeling well. On exam, he appears uncomfortalb ewhen moving, more at rest when laying on his side. Does not appear systemically ill. No abdominal tenderness. Palpable area of fluctuance and pain at the 12 o'clock position. No erythema or warmth. Concerned with abscess tracking deeper than palpable given the location. He has had concern for fistula in the past. Will obtain advanced imaging. Will give abx and obtain labs. Labs reviewed. No leukocytosis. Creatinine elevated at 1.4, he is receiving IV fluids. CT reviewed by radiologist, small abscess noted. Spoke with Dr. Crawford with surgical team who reviewed the CT and evaluated the patient. He advised that at this time, this is too small to drain. Recommended PO antibiotics and close f/u in their office. Discussed this plan with the patient who is in agreement. Return precautions discussed. All of his questions and concerns were addressed, he is in agreement with this plan. <Adri Portillo NP - Last Filed: 07/11/22 20:57> Medical Records Medical records narrative: The 2056: [place]: Patient was not seen by me was dispositioned by my colleague. HPI <ZAYRA Ferrer - Last Filed: 07/20/22 13:58> General Date/Time Provider Initiated Documentation: 07/11/22 13:34. Limitations to Documentation: no limitations. Information obtained by: patient, RN notes reviewed and old records reviewed. History of Present Illness 36 year old M presents to the emergency department with the chief complaint of perianal abscess, described as moderate and similar to prior episodes, with intensity rated at 4. Quality is described as aching, and is localized to the genitals. Patient reports no radiation. Patient started experiencing this hour(s) (this AM) and it has been constant. Immobilization improves symptom(s), Movement worsens symptoms (and sitting on it) . Patient notes no other symptoms.. Patient did receive the following treatments prior to arrival, none Related Data Home Medications Medication Instructions Recorded Confirmed Unknown [No Known Home Meds] 07/20/22 07/20/22 Allergies Allergy/AdvReac Type Severity Reaction Status Date / Time erythromycin lactobionate Allergy Mild Skin Rash Unverified 07/20/22 08:59 [From Erythrocin] cephalexin monohydrate AdvReac Intermediate itchy Unverified 07/20/22 08:59 [From Keflex] rash/hives sulfamethoxazole AdvReac Intermediate itchy Unverified 07/20/22 08:59 [From Bactrim] rash/hives trimethoprim [From Bactrim] AdvReac Intermediate itchy Unverified 07/20/22 08:59 rash/hives seizure medication AdvReac Unknown Uncoded 07/20/22 08:59 General Stated Complaint: Male Reproductive Problem EMMIE: 3 Review of Systems <ZAYRA Ferrer - Last Filed: 07/20/22 13:58> Constitutional Constitutional: Reports as per HPI, Denies chills and Denies fever(s) Gastrointestinal Gastrointestinal: Reports as per HPI, Denies abdominal pain, Denies hematochezia, Denies change in bowel habits, Denies tenesmus, Denies cramping and Denies fecal incontinence Genitourinary Genitourinary: Denies hematuria, Denies oliguria and Denies penile discharge Musculoskeletal Musculoskeletal: Reports as per HPI Integumentary/Breasts Skin/Breast: Reports as per HPI Neurologic Neurologic: Reports as per HPI, Denies sensory deficit and Denies paresthesias PFSH <ZAYRA Ferrer - Last Filed: 07/20/22 13:58> All Active Problems Abscess of perineum (Acute) Surgical History History of incision and drainage (~06/15/21) Social History Smoking/Tobacco Use Status: Never Smoking risk assessment performed?: Yes Alcohol Intake: current Alcohol Intake frequency: holidays/special occasions only Drug use: Never Substance use type: does not use Current gender identity: male Exam <ZAYRA Ferrer Last Filed: 07/20/22 13:58> Const General: cooperative, healthy appearing, comfortable, no acute distress and well developed Nutritional Appearance: average body habitus and well nourished Orientation: alert and awake Resp Effort & Inspection: normal respiratory effort, able to speak in complete sentences and no respiratory distress Auscultation: clear to auscultation bilaterally Cardio Rate: regular rate Rhythm: regular rhythm Heart Sounds: S1 normal and S2 normal GI Inspection: normal to inspection Palpation: soft, not rigid and nontender Rectal Exam: visual inspection normal, No fissure, No hemorrhoids, No laceration and tenderness (palpable area of swelling/fluctuance anterior ot the rectum, not involv mela) Male General Exam: Yes normal external exam Skin General skin exam: no rashes or lesions noted and fluctuance (as above) Neuro General: patient alert and patient awake Cognition: normal cognition Speech: speech normal Gait: normal gait Sensory Exam: no sensory deficits noted Psych Appearance: grossly normal and well kempt Mental Status: mental status grossly normal Speech and Movement: speech and movement normal Course <ZAYRA Ferrer - Last Filed: 07/20/22 13:58> Vital Signs Vital signs: Vital Signs Temperature 36.8 C 07/11/22 12:05 Pulse 72 07/11/22 12:05 Respiratory Rate 18 07/11/22 12:05 Blood Pressure 143/91 H 07/11/22 12:05 Pulse Oximetry 97 07/11/22 12:05 Temperature 36.8 C 07/11/22 12:05 Temperature Source Temporal Artery Scan 07/11/22 12:05 Pulse 72 07/11/22 12:05 Respiratory Rate 18 07/11/22 12:05 Respiratory Effort Non-Labored 07/11/22 12:08 Blood Pressure 143/91 H 07/11/22 12:05 Blood Pressure Position Sitting 07/11/22 12:05 Pulse Oximetry 97 07/11/22 12:05 Oxygen Delivery Method Room Air 07/11/22 12:05 Oxygen Flow Rate 0 07/11/22 12:05 Pain Level 4 07/11/22 12:05
--- NOTE | 2022-07-11 13:50 | DI.CT_ITS ---
Exam(s) CT PELVIC W EXAM: CT PELVIC W CLINICAL HISTORY: abscess perineal area, closer to rectum. TECHNIQUE: Imaging Protocol: Axial computed tomography images with coronal and sagittal reformatted images were created and reviewed. CONTRAST MATERIAL: Intravenous: Omnipaque 350 Contrast volume:structured data in ml Contrast route:I V - Oral: yes / no COMPARISON: CT CT PELVIC W from 06/15/2021 FINDINGS: Bladder: Symmetric distention, no gross wall thickening. Bowel: Sigmoid diverticulosis. No surrounding inflammation. No obstruction or bowel wall thickening . Peritoneal cavity: No ascites, collection or mesenteric inflammatory response. Soft tissues: Small abscess measuring 0.9 by 2.8 by 2.5 cm located in the left inferior perineum near the midline anterior to the level of the anus. This is in a similar location as on the previous exa m. The abscess is smaller compared to the prior study. Bones: No fracture or destructive lesion. There are degenerative changes of the hips, somewhat dispr oportionate to the patient's age. IMPRESSION: Small perineal abscess, similar location as on prior exam. No abnormalities seen within the pelvis. Results of this exam have been verbally communicated with the emergency department provider. RADIATION DOSE DELIVERED: 655.42mGy.cm Total DLP DATA REPOSITORY: All CT scans at this facility are submitted to the National Radiology Data Registry (NRDR) Dose Index Registry (DIR) with the [employer] (ACR). RADIATION OPTIMIZATION: All CT scans at this facility use at least one of these dose optimization te chniques: automated exposure control; mA and/or kV adjustment per patient size (includes targeted exa ms where dose is matched to clinical indication); or iterative reconstruction.
[2022-07-11] MEDS: Omnipaque 350 MG/ML 500 ML BTL-Imaging package IJ (14:20)
[2022-07-11 15:00] LABS: Lactate 0.5 mmol/L (0.6-1.4)
[2022-07-11] MEDS: ACETAMINOPHEN 1,000 MG/100 ML BTL 400 MG IVPB (15:02)
[2022-07-11 15:03] LABS: Abs Immature Grans 0.04 10^3/uL (0.0-0.06); Absolute Basophil Count 0.03 10^3/uL (0.0-0.2); Absolute Eosinophil Count 0.22 10^3/uL (0.0-0.7); Absolute Lymphocyte Count 2.53 10^3/uL (1.2-3.4); Absolute Neutrophil Count 4.81 10^3/uL (1.2-6.7); Basophils % 0.4; Eosinophils % 2.6; HCT 41.5 % (40.0-50.0); HGB 14.4 g/dL (13.5-17.5); Immature Grans % 0.5; Lymphocytes % 30.4; MCH 30.6 pg (27.0-33.0); MCHC 34.7 % (32.0-36.0); MCV 88 fL (80-95); MPV 10.8 fL (8.0-11.0); Monocytes % 8.4; Neutrophils % 57.7; Platelet Count 188 10^3/uL (130-400); RDW 12.1 % (11.8-14.1); RDW-SD 38.9 fL; WBC 8.33 10^3/uL (4.4-10.8)
[2022-07-11] MEDS: Normal Saline 1,000 ML 1000 ML IV (15:13)
[2022-07-11 15:19] LABS: ALT 29 U/L (16-63); AST 13 U/L (15-37); Albumin 3.8 g/dL (3.4-5.0); Alkaline Phosphatase 78 U/L (46-116); Anion Gap 4.8 mmol/L (3-11); BUN 24 mg/dL (7-18); Bilirubin, Total 0.4 mg/dL (0.2-1.0); CO2 30.2 mmol/L (21.0-32.0); CREATININE 1.4 mg/dL (0.70-1.30); Calcium 8.7 mg/dL (8.5-10.1); Chloride 103 mmol/L (98-107); Glucose 85 mg/dL (74-106); Lipase 110 U/L (73-393); Potassium 3.7 mmol/L (3.5-5.1); Sodium 138 mmol/L (136-145); Total Protein 6.7 g/dL (6.4-8.2)
[2022-07-11] MEDS: CIPROFLOXACIN 400 MG/200 ML BAG 200 MG IVPB (15:50)
[2022-07-11] MEDS: metroNIDAZOLE 500 MG/100 ML BAG 100 MG IVPB (15:50)
--- NOTE | 2022-07-11 17:13 | W.SURGCON ---
Date of service: 07/11/22 Time of Service: 17:13 Assessment and Plan Assessment and plan (1) Abscess of perineum: Status: Acute Assessment and plan: I think Adriel has a perianal abscess. Certainly, the CAT scan supports this diagnosis. It is almost certainly a result of a fistula in ano. Unfortunately, there is no obvious place to incise and drain this externally. Although there is some tenderness in the perineum, I do not appreciate any fluctuance or erythema that would suggest a simple target for drainage. Furthermore, the CAT scan shows a rather small collection at this point. Although I do think it is likely that this will evolve a bit into a more pointed abscess where the of drainage, at this point, I think the safest, and simplest option is for outpatient antibiotics and reassessment in the next 48 hours or so. He is already received a dose of Cipro and Flagyl, which I think is a reasonable regimen based on his allergies. I can see him in the office this upcoming Monday. I explained other signs and symptoms to look out for should this evolve sooner than that. He seems to have a good understanding of how this might progress. If we can resolve this with simple antibiotics, he certainly needs an exam under anesthesia for definitive treatment moving forward. History of Present Illness History of Present Illness Chief Complaint: Perianal pain Narrative: It was nice to meet Adriel in the emergency department, after consultation for perianal abscess. He is 36 years old he developed the acute onset of perineal pain after a hard bowel movement this morning. He denies any fevers, or other systemic signs of infection. He says the pain is sharp and stabbing. It is worse when he sitting on it. He is a little relief with laying on his side. This is similar to an episode he had about 1 year ago when he was diagnosed with perineal abscess. At that time, he required incision and drainage, but never followed through with an exam under anesthesia when he was healed. Otherwise, he is in a good state of health. Consults Consult date: 07/11/22 Requesting physician: Claudia Harper Review of Systems Constitutional Constitutional: Denies body ache(s), Denies chills, Denies fatigue, Denies fever(s), Denies lethargy, Denies weakness and Denies weight loss Eyes Eyes: Reports system reviewed and no additional complaints, except as documented ENT Ears, Nose, Mouth, and Throat: Reports system reviewed and no additional complaints, except as documented Cardiovascular Cardiovascular: Denies chest pain and Denies dyspnea Respiratory Respiratory: Denies chest congestion, Denies cough and Denies dyspnea Gastrointestinal Gastrointestinal: Denies abdominal pain, Denies hematochezia, Denies change in bowel habits, Denies fecal incontinence and Denies diarrhea Genitourinary Genitourinary: Denies hematuria and Denies difficulty urinating Musculoskeletal Musculoskeletal: Reports system reviewed and no additional complaints, except as documented Neurologic Neurologic: Reports system reviewed and no additional complaints, except as documented and Denies weakness Psychiatric Psychiatric: Reports system reviewed and no additional complaints, except as documented Endocrine Endocrine: Denies fatigue Hematologic/Lymphatic Hematologic/Lymphatic: Denies easy bleeding and Denies easy bruising PFSH All Active Problems Abscess of perineum (Acute) Surgical History History of incision and drainage (~06/15/21) Social History Smoking/Tobacco Use Status: Never Smoking risk assessment performed?: Yes Alcohol Intake: current Alcohol Intake frequency: holidays/special occasions only Drug use: Never Substance use type: does not use Exam Const General: cooperative, healthy appearing and comfortable Orientation: awake and oriented x3 Eyes General: appearance normal, both eyes and all related structures Conjunctivae: conjunctivae normal Sclera: sclerae normal Resp Effort & Inspection: normal respiratory effort and able to speak in complete sentences Cardio Jugular venous pressure: no JVD Rate: regular rate GI Inspection: non-distended Palpation: soft, no guarding, no hernias and nontender Auscultation: normal bowel sounds Rectal Exam: visual inspection normal, normal sphincter tone, No fissure, No hemorrhoids and tenderness Other: He has tenderness over the perineal body. I do not appreciate any fluctuance. There is no erythema. Skin General skin exam: normal turgor Neuro General: patient alert, patient awake and patient oriented x3 Cognition: normal cognition Extrem Right lower extremity: no edema Left lower extremity: no edema Results Last Vital Signs Temp 98.3 F 07/11/22 12:05 Pulse 72 07/11/22 12:05 Resp 18 07/11/22 12:05 BP 143/91 H 07/11/22 12:05 Pulse Ox 97 07/11/22 12:05 Labs Result diagrams: 07/11/22 14:52 07/11/22 14:52 Labs: Laboratory Results - last 24 hr 07/11/22 07/11/22 07/11/22 14:52 14:52 14:52 WBC 8.33 RBC 4.70 Hgb 14.4 Hct 41.5 MCV 88 MCH 30.6 MCHC 34.7 RDW 12.1 Plt Count 188 MPV 10.8 Immature Gran % 0.5 Neutrophils % 57.7 Lymphocytes % 30.4 Monocytes % 8.4 Eosinophils % 2.6 Basophils % 0.4 Nucleated RBC % 0.0 Absolute Neutrophils 4.81 Absolute Lymphocytes 2.53 Absolute Monocytes 0.70 Absolute Eosinophils 0.22 Absolute Basophils 0.03 VBG Lactate 0.5 L Sodium 138 Potassium 3.7 Chloride 103 Carbon Dioxide 30.2 Anion Gap 4.8 BUN 24 H Creatinine 1.4 H Est GFR (CKD-EPI 2020) 66.80 Glucose 85 Calcium 8.7 Total Bilirubin 0.4 AST 13 L ALT 29 Alkaline Phosphatase 78 Total Protein 6.7 Albumin 3.8 Lipase 110
== END 2022-07-11 17:31 | disposition home or self-care (01) ==
PROVIDERS: Emergency Provider Physician Assistant; PCP Family Medicine
DX: L02.215 Cutaneous abscess of perineum (principal)
CPT/HCPCS: 36415; 80053; 83690; 96361; 96365; 96367; 96368; 99284; 72193; 83605; 85025; 99283; J0131; J0744

== ENCOUNTER 2022-07-13 15:57 | Outpatient (REF) | payer BC, SELFPAY | END 2022-07-13 15:58 | disposition home or self-care (01) | LOC: LBN 15:57 | PROVIDERS: PCP Family Medicine; Visit Provider Surgery | DX: L02.215 Cutaneous abscess of perineum (principal) | CPT/HCPCS: 87070; 87205 ==

== ENCOUNTER 2022-09-16 06:03 | Day surgery (SDC) | payer BC, SELFPAY ==
--- NOTE | 2022-09-15 20:09 | W.PREOPHP ---
Assessment and Plan Assessment and plan (1) Abscess of perineum: Status: Acute Assessment and plan: We will proceed with anorectal exam under anesthesia today History of Present Illness History of Present Illness Chief Complaint: Perineal abscess Narrative: He underwent incision and drainage of a perianal abscess with skin overlying the perineal body a few weeks ago.? Culture data was normal in [place].? He is made a nice recovery since that drainage, relatively pain-free and asymptomatic since then.? He is moving his bowels without any difficulty.? He denies any fevers or chills. He does still have some occasional bloody discharge per anus. PFSH All Active Problems Abscess of perineum (Acute) Medical History Seizure as a child Surgical History History of incision and drainage (~06/15/21) Social History Smoking/Tobacco Use Status: Never Smoking risk assessment performed?: Yes Alcohol Intake: current Alcohol Intake frequency: holidays/special occasions only Drug use: Never Substance use type: does not use Current gender identity: male Do you feel safe at home: Yes Do you feel safe in your relationship?: Yes Meds Allergies and Home Medications Allergies Allergy/AdvReac Type Severity Reaction Status Date / Time erythromycin lactobionate Allergy Mild Skin Rash Verified 09/16/22 06:10 [From Erythrocin] cephalexin monohydrate AdvReac Intermediate itchy Verified 09/16/22 06:10 [From Keflex] rash/hives sulfamethoxazole AdvReac Intermediate itchy Verified 09/16/22 06:10 [From Bactrim] rash/hives trimethoprim [From Bactrim] AdvReac Intermediate itchy Verified 09/16/22 06:10 rash/hives seizure medication AdvReac Unknown Uncoded 07/20/22 08:59 Home Medications Medication Instructions Recorded Confirmed Type Unknown [No Known Home Meds] 07/20/22 07/20/22 History Exam Const General: cooperative, healthy appearing and comfortable Orientation: awake and oriented x3 Eyes General: appearance normal, both eyes and all related structures Conjunctivae: conjunctivae normal Sclera: sclerae normal Resp Effort & Inspection: normal respiratory effort and able to speak in complete sentences Auscultation: clear to auscultation bilaterally Cardio Jugular venous pressure: no JVD Rate: regular rate Rhythm: regular rhythm Heart Sounds: S1 normal and S2 normal GI Inspection: non-distended Palpation: soft, no guarding, no hernias and nontender Auscultation: normal bowel sounds Skin General skin exam: normal turgor Neuro General: patient alert, patient awake and patient oriented x3 Cognition: normal cognition Extrem Right lower extremity: no edema Left lower extremity: no edema
--- NOTE | 2022-09-15 20:11 | W.PM.DSUDISC ---
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 Discharge Instructions Instructions: Anorectal Abscess and Anal Fistula (GEN) Additional Instructions: 1. Use Tylenol and ibuprofen for pain. Use oxycodone as needed for severe pain. 2. Obtain a sitz bath from any pharmacy. Soak for 10-15 minutes in warm water, warm water mixed with half a cup of baking soda, or Epson salts after each bowel movement, or up to 5 times per day as needed for pain. 3. You might experience a little bit of bloody discharge from your anus. You can use simple gauze, or menstrual pad as needed 4.Call the office (or go directly to the emergency room after hours) if you notice any of the following: ? Develop chills (warm to touch), or if you have a thermometer ? and your temperature is above 101 ? Difficulty breathing or difficultly swallowing ? Persistent vomiting ? Any bleeding ? exceeding one tablespoon 5. Call your physician if the site where your intravenous was started becomes red, swollen, painful, and warm to touch. 6. You have absorbable sutures at the surgical site. You may notice these falling off during bowel movements or with bathing the area Stand Alone Forms: Anesthesia Discharge Inst., Charito Good (DSU) Referrals: Renzo Crawford MD [ [facility] STAFF PHYSICIAN] - (10-14 days routine follow up) Activity:: Activity as Tolerated Shower/Bathe:: 24 hours Diet:: As Tolerated Discharge Orders Discharge Orders: Discharge Order (Routine); Ordered 09/15/22 Ordered By: Renzo Crawford DS: Diagnosis Discharge Diagnosis (1) Abscess of perineum: Status: Acute Asessment and Plan: There was a small, superficial perianal fistula. I excised this, and close the skin primarily. Follow the discharge instructions, and schedule an appointment to see me in the office in approximately 10 to 14 days in routine follow-up.
--- NOTE | 2022-09-15 20:13 | ROE_ITS ---
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 He is here for exam under anesthesia to assess for any perianal fistula that may be the source of his abscesses. Findings: Posterior perianal superficial fistula Procedure Description: The induction of general anesthesia, the patient was placed in lithotomy positioning with great care taken to pad all the points of contact. His perineum and anus were then prepped and draped in the usual fashion. I started with a digital rectal exam. There was a small abnormality in the posterior position. I did not appreciate any masses. Otherwise, the exam was normal. Next, using a series of anal retractors, I performed a visual anorectal exam. With the patient in the lithotomy position, there was a superficial fistula immediately adjacent to the anal verge in the posterior position. This is at 6:00 on the clock face. The remainder of the anal column was normal. There was minimal evidence of internal hemorrhoids, most obvious at the left lateral position. They were too small to treat. Next, I turned my attention back to the posterior fistula. Using a lacrimal duct probe, it appeared to track slightly towards the patient's right side. It was quite shallow and superficial. I then anesthetized the area with local anesthetic including epinephrine. I excised the fistula in its entirety. It was superficial to the sphincter complex. I closed the surrounding perianal mucosa and skin with interrupted chromic sutures. The incision was hemostatic. The area was then dressed with a peripads and mesh panties.
[2022-09-16] VITALS (8 sets, daily range): BP systolic 96–128; BP diastolic 52–85; PULSE 61–84; RESP 11–19; TEMP 36–36.8; O2SAT 93–100; BMI 31.8
[2022-09-16] MEDS: Celecoxib 200 MG CAP PO (06:32)
[2022-09-16] MEDS: Gabapentin 300 MG CAP PO (06:32)
[2022-09-16] MEDS: Acetaminophen 500 MG TAB 1000 MG PO (06:32)
--- NOTE | 2022-09-16 06:42 | ANES.PREOP_ITS ---
General Info Date of Service Date Performed: 09/16/22 Height: 6 ft Weight: 106.7 kg Body Mass Index (BMI): 31.8 Surgical Procedure: Operation Date: 09/16/22 07:40 Proposed Procedure Side Surgeon p Anorectal Exam Under Anesthesia Renzo Crawford MD Meds Allergies and Home Medications Allergies Allergy/AdvReac Type Severity Reaction Status Date / Time erythromycin lactobionate Allergy Mild Skin Rash Verified 09/16/22 06:10 [From Erythrocin] cephalexin monohydrate AdvReac Intermediate itchy Verified 09/16/22 06:10 [From Keflex] rash/hives sulfamethoxazole AdvReac Intermediate itchy Verified 09/16/22 06:10 [From Bactrim] rash/hives trimethoprim [From Bactrim] AdvReac Intermediate itchy Verified 09/16/22 06:10 rash/hives seizure medication AdvReac Unknown Uncoded 07/20/22 08:59 Home Medication Medication Instructions Recorded Unknown [No Known Home Meds] 07/20/22 Current Visit Medications: Current Medications Generic Name Dose Route Start Last Admin Trade Name Docq PRN Reason Stop Dose Admin Acetaminophen 1,000 mg 09/16/22 06:00 09/16/22 06:32 Acetaminophen 500 Mg Tab PO 10/15/22 23:59 1,000 mg PREOP CRAY Administration Celecoxib 200 mg 09/16/22 06:00 09/16/22 06:32 Celecoxib 200 Mg Cap PO 10/15/22 23:59 200 mg PREOP CARY Administration Gabapentin 300 mg 09/16/22 06:00 09/16/22 06:32 Gabapentin 300 Mg Cap PO 10/15/22 23:59 300 mg PREOP CARY Administration Ringer's Solution 1,000 mls @ 80 mls/hr 09/16/22 06:00 IV 10/15/22 23:59 INFUSION CARY Vancomycin/PEG/NADA/Lysine/Water 2 gm in 400 mls @ 200 mls/hr 09/16/22 06:00 Vancocin Injection IV 09/16/22 18:00 PREOP CARY IV Miscellaneous Supplies 1 each 09/16/22 06:00 Iv Access IV 10/15/22 23:59 DIRECTED CARY Morphine Sulfate 2 mg 09/15/22 20:15 Morphine 4 Mg/Ml Syr IVP Q1H PRN PRN Oxycodone HCl 5 mg 09/15/22 20:15 Oxycodone 5 Mg Tab PO Q3H PRN PRN Pain Sodium Chloride 0 ml 09/16/22 06:00 Normal Saline Flush 10 Ml Syr IV 10/15/22 23:59 PRN PRN Sodium Chloride 0 ml 09/16/22 06:00 Normal Saline 10 Ml Vial IJ 10/15/22 23:59 DIRECTED PRN Sterile Water 0 ml 09/16/22 06:00 Water,Injection,Sterile 10 Ml Vial IJ 10/15/22 23:59 DIRECTED PRN PFSH Active Problems Active Problems: Problem Status Onset Code Abscess of perineum L02.215 Medical History Medical History Seizure as a child Surgical History Surgical History History of incision and drainage (~06/15/21) Tobacco Smoking/Tobacco Use Status: Never Alcohol Alcohol Intake: current Alcohol intake frequency: holidays/special occasions only Substance Use Substance use: Never Substance use type: does not use Vital Signs and Lab Results Vital Signs Most Recent Vital Signs in EMR: Most Recent Vital Signs Temp Pulse Resp BP Pulse Ox 36.3 C L 61 16 128/85 98 09/16/22 06:11 09/16/22 06:11 09/16/22 06:11 09/16/22 06:11 09/16/22 06:11 Lab Results Blood Type / Crossmatch: No Data to Display Complete Blood Count: No Data to Display Complete Metabolic Panel: No Data to Display Liver Function Panel: No Data to Display Coagulation Panel: No Data to Display Cardiac Panel: No Data to Display Arterial Blood Gas: No Data to Display Venous Blood Gas: No Data to Display Pancreas Panel: No Data to Display Thyroid Panel: No Data to Display Infectious Disease: No Data to Display Blood Cultures: No Data to Display Toxicology Panel: No Data to Display Anesthesia Assessment and Plan Anesthesia History Personal History: No History of Anesthesia Complications Family History: No Family History of Anesthesia Complications Exercise Tolerance Exercise Tolerance: Metabolic Equivalents>4 Pertinent Negatives Pertinent Negatives: No Symptoms of GERD, No Major Cardiovascular Symptoms or C omplaints and No Major Pulmonary Symptoms or Complaints Cardiac & Pulmonary Exam Cardiac Exam: Normal S1/S2 Heart Sounds Pulmonary Exam: Clear Bilateral Breath Sounds Implantable Cardiac Device Does patient have a Pacemaker or an ICD?: No Airway Exam Known Difficult Airway: No Mallampati Class: 2 Mouth Opening: Normal (> 3cm) Thyromental Distance: Greater than 3 cm Neck Range of Motion: Full ROM Neck Circumference: Normal Teeth Condition: Normal Dentition and Loose or Chipped ASA Classification ASA Score: ASA 2 Emergency Case?: No NPO Status NPO Status: NPO Clears >2 hours, Solids >8 hours Anesthesia Plan Resuscitation Status: Full Code Anesthesia Technique: General Anesthesia Airway Planned: LMA Monitors Used: Standard Monitors
[2022-09-16] MEDS: VANCOMYCIN/WATER (PEG) 2 GM/400 ML BAG IV (06:46)
[2022-09-16] MEDS: Lactated Ringers 1,000 ML 80 ML IV (06:49)
[2022-09-16] MEDS: Bupivacaine 0.5% Pres-Free W/EPI 30 ML VIAL (07:52)
--- NOTE | 2022-09-16 08:54 | W.ANESPOSTOP ---
Postoperative Evaluation Date, Time and Location Date Performed: 09/16/22 Time Performed: 08:30 Patient Location: PACU Vital Signs Most Recent Imported Vital Signs: Most Recent Vital Signs Temp Pulse Resp BP Pulse Ox 36.6 C 67 11 L 121/59 L 96 09/16/22 08:30 09/16/22 08:30 09/16/22 08:30 09/16/22 08:30 09/16/22 08:30 Pain Score Most Recent Pain Score: Most Recent Pain Score Pain Level 0 09/16/22 08:30 Assessment Mental Status: Awake (Alert & Oriented to Patient Baseline) Airway and Respiratory Function: Patent airway with normal (patient baseline) respiratory exam Cardiovascular Function: Hemodynamically Stable Hydration Status: Adequately Hydrated Nausea & Vomiting: No Nausea or Vomiting Pain: Pt. Denies Any Pain Peripheral Nerve Block: Patient did not receive a nerve block
== END 2022-09-16 10:05 | disposition home or self-care (01) ==
PROVIDERS: PCP Family Medicine; Visit Provider Surgery
PROC: (CPT 46200; principal; 2022-09-16 07:30)
DX: K60.3 Anal fistula (principal); K64.8 Other hemorrhoids
CPT/HCPCS: 46200; J1100; J1885; J2250; J2405; J2704